=== PATIENT | female | born 1935 | race Hispanic/Latino ===

== ENCOUNTER 2018-06-01 16:16 | Emergency (ER) | payer MEDICARE, SELFPAY ==
[2018-06-01 16:23] VITALS: BP 131/54; PULSE 51; RESP 19; TEMP 36.3; O2SAT 96
[2018-06-01 18:29] LABS: Add Manual Diff / Slide Review NO; Basophils Percent Auto 0.8 % (0-2); Eosinophils Percent Auto 2.5 % (2-4); Hematocrit 32.1 % (36-46); Hemoglobin 10.6 g/dL (12.0-16.0); Lymphocytes Percent Auto 13.3 % (25-40); Mean Corpuscular Hemoglobin 26.9 PG (26-34); Mean Corpuscular Volume 81.5 fL (80-100); Monocytes Percent Auto 10.6 % (3-14); Neutrophils Absolute Auto 5600 /uL (3000-5900); Neutrophils Percent Auto 72.8 % (50-75); Platelet Count 186 X10^3/uL (150-400); Red Blood Cell Count 3.95 X10^6/uL (4.0-5.2); Red Cell Distribution Width 14.6 % (11.6-14.8); White Blood Cell Count 7.7 X10^3/uL (4.5-11.0)
[2018-06-01 18:44] LABS: BUN Creatinine Ratio 34.4 (6-22); Blood Urea Nitrogen 55 mg/dL (7-17); Calcium 8.8 mg/dL (8.4-10.2); Carbon Dioxide 19 mmol/L (22-32); Chloride 97 mmol/L (98-107); Creatine Kinase 108 U/L (30-135); Glucose 191 mg/dL (80-110); HEMOLYSIS < 15 (0-50); Magnesium 2.2 mg/dL (1.6-2.3); Potassium 5.1 mmol/L (3.4-5.1); Sodium 127 mmol/L (137-145)
[2018-06-01 18:59] LABS: CKMB % Relative Index 2.9 % (1.5-5.0); Creatine Kinase MB 3.17 ng/mL (<2.37)
[2018-06-01 19:06] LABS: Troponin I < 0.012 ng/mL (0.01-0.034)
[2018-06-01 19:13] LABS: Procalcitonin < 0.05 ng/mL (<0.5)
[2018-06-01 19:26] VITALS: BP 153/55; PULSE 49; O2SAT 97
--- NOTE | 2018-06-01 19:32 | DI.RAD.S_ITS ---
PROCEDURE: XR CHEST 1V INDICATIONS: shortness of breath TECHNIQUE: One view of the chest was acquired. COMPARISON: None. FINDINGS: Surgical changes and devices: Postsurgical changes are demonstrated in the mediastinum with multiple intact median sternotomy wires. There is a prosthetic aortic valve noted. Lungs and pleura: There is pulmonary edema. Small bilateral pleural effusions are demonstrated. Mediastinum: Mediastinal contours appear normal. Heart size is enlarged. Bones and chest wall: No suspicious bony lesions. Overlying soft tissues appear unremarkable. IMPRESSION: 1. Cardiomegaly with pulmonary edema and small pleural effusions compatible with congestive heart failure. Dictated by: Neto Xiao M.D. on 06/01/2018 at 20:02 Approved by: Neto Xiao M.D. on 06/01/2018 at 20:03
[2018-06-01 20:00] VITALS: BP 141/58; PULSE 49; RESP 18; O2SAT 96
--- NOTE | 2018-06-01 20:34 | PC.NURSE ---
patient is alert and oriented and answering questions appropriately. patients family reports that the patient has had some confusion. Dr. Dev ambriz.
--- NOTE | 2018-06-01 20:53 | ED_ITS ---
HPI - SOB/Dyspnea General Chief Complaint: Shortness of Breath/Dyspnea Stated Complaint: TROUBLE BREATHING RECENTLY Time Seen by Provider: 06/01/18 17:56 Source: patient and family Mode of arrival: ambulatory Limitations: no limitations History of Present Illness 82-year-old female with history of hypertension, diabetes and CHF presents to the emergency department with her family in the chief complaint of lab abnormalities noted by her primary care provider whom then recommended she come to see us. Patient has become increasingly short of breath and has had weight gain and has been working with primary care to address this issue. Additionally over the past few weeks the patient's sodium is take in a rather precipitous drop from the mid to upper 130s to the low 120s. Primary care has alter the patient's diuretic given this increasing creatinine and drop in sodium and the patient is becoming increasingly short of breath. Furthermore family states that the patient has become bit confused and is certainly not at her baseline. The patient pulse ox is 92-94% while resting. Patient is quite short of breath lying flat, with any exertion and at times just with conversation. Patient was noted to have a slow AFib in the office with a heart rate in the 40s and was encouraged not to take her metoprolol MD Complaint: shortness of breath Onset (ago): day(s) Severity: moderate Consistency/Duration: constant Relieving factors: rest Exacerbating factors: lying flat, exertion and movement Known history of: congestive heart failure Associated symptoms: wheezing and orthopnea Treatment prior to arrival: none Related Data Home oxygen amount: none Home Medications Medication Instructions Recorded Confirmed amlodipine 10 mg PO QAM 06/01/18 06/01/18 glimepiride 1 mg PO QAM 06/01/18 06/01/18 insulin glargine [Lantus U-100 19 units SUBCUT QPM 06/01/18 06/01/18 Insulin] lorazepam 0.5 mg PO PRN PRN 06/01/18 06/01/18 losartan 50 mg PO QD-BID 06/01/18 06/01/18 metoprolol tartrate 100 mg PO BID 06/01/18 06/01/18 pravastatin 80 mg PO QAM 06/01/18 06/01/18 torsemide 20 mg PO QAM 06/01/18 06/01/18 venlafaxine 75 mg PO QAM 06/01/18 06/01/18 warfarin 5 mg PO QAM 06/01/18 06/01/18 Allergies Allergy/AdvReac Type Severity Reaction Status Date / Time No Known Drug Allergies Allergy Verified 06/01/18 16:27 Review of Systems Review of Systems All systems reviewed & are unremarkable except as noted in HPI and below Constitutional Denies chills, Denies fever(s), Denies lethargy and Denies weakness Eyes Denies change in vision, Denies eye discharge, Denies irritation and Denies loss of vision ENT Ears, Nose, Mouth, and Throat: Denies change in voice, Denies neck pain and Denies sore throat Cardiovascular Denies chest pain, Denies irregular heart rhythm, Reports leg edema, Denies lightheadedness, Denies palpitations, Reports dyspnea, Reports dyspnea on exertion, Reports orthopnea and Reports slow heart rate Respiratory Denies cough, Reports dyspnea, Reports dyspnea on exertion and Denies wheezing Gastrointestinal Gastrointestinal: Denies abdominal pain, Denies change in bowel habits, Denies diarrhea, Denies nausea and Denies vomiting Genitourinary Denies hematuria, Denies flank pain, Denies urinary incontinence and Denies urinary urgency Musculoskeletal Denies neck pain Integumentary/Breasts Denies pruritus, Denies erythema, Denies rash and Denies wounds Neurologic Denies confusion, Denies loss of vision and Denies weakness Psychiatric Denies anxiety, Denies confusion, Denies depression, Denies homicidal ideation and Denies suicidal ideation Endocrine Denies palpitations Hematologic/Lymphatic Denies easy bruising Allergic/Immunologic Denies wheezing PFSH Social History Smoking Status: Former smoker Exam Narrative Exam Narrative: pleasant 82F in mild distress, clearly SOB Initial Vital Signs Initial Vital Signs: Vital Signs Temperature 97.4 F L 06/01/18 16:23 Pulse Rate 51 L 06/01/18 16:23 Respiratory Rate 19 06/01/18 16:23 Blood Pressure 131/54 H 06/01/18 16:23 Pulse Oximetry 96 06/01/18 16:23 Const General: cooperative and well developed Nutritional Appearance: well nourished Orientation: alert, awake, oriented x3 and not confused Eyes General: appearance normal, both eyes and all related structures Eyelids: eyelids normal Conjunctivae: conjunctivae normal Sclera: sclerae normal Pupils: PERRL EOM: EOM intact bilaterally Neck Neck: normal visual inspection, trachea midline, No lymphadenopathy, No midline deformity and No JVD Lymphatic: No lymphedema Resp Effort & Inspection: normal respiratory effort, able to speak in complete sentences, respiratory distress and no use of accessory muscles Auscultation: rales, no rhonchi and no wheezes Cardio Rate: bradycardic Rhythm: abnormal rhythm GI Inspection: non-distended Palpation: soft, no hepatosplenomegaly, No guarding, No pulsatile mass and No tender Auscultation: normal bowel sounds Back/Spine/Pelvis Back: No CVA tenderness Cervical Spine: cervical ROM normal and No pain with cervical ROM Thoracic/Lumbar Spine: thoracic and lumbar spine normal to inspection Neuro General: alert, oriented x3, gait normal and no focal motor deficits Speech: speech normal Extrem Right lower extremity: edema Details: 2+ Left lower extremity: edema Details: 2+ Psych Appearance: grossly normal Mental Status: mental status grossly normal Attitude: cooperative Thought Content: normal and suicidality Judgment: judgment good Course Orders Ordered: ED Orders 06/01/18 16:50 Consult to Respiratory Therapy Evaluate & Treat EKG-12 Lead Stat 06/01/18 18:15 B Type Natriuretic Peptide Stat Basic Metabolic Panel Stat Complete Blood Count AUTO DIFF Stat Magnesium Stat Procalcitonin Stat Troponin & CK Cardiac Panel Stat 06/01/18 19:32 XR chest 1V Stat Discontinued Medications Albuterol/Ipratropium (Duoneb) 3 ml INH NOW ONE Stop: 06/01/18 16:51 Last Admin: 06/01/18 19:17 Dose: Not Given Methylprednisolone (Solu-Medrol 125 Mg Vial) 125 mg IV NOW ONE Stop: 06/01/18 16:51 Last Admin: 06/01/18 19:17 Dose: Not Given Vital Signs - 8 hr 06/01/18 16:23 06/01/18 19:26 06/01/18 20:00 Temperature 97.4 F L Pulse Rate 51 L 49 L 49 L Respiratory Rate 19 18 Blood Pressure 131/54 H Blood Pressure [Left Arm] 153/55 H 141/58 H Pulse Oximetry 96 97 96 06/01/18 21:13 Temperature Pulse Rate 52 L Respiratory Rate Blood Pressure Blood Pressure [Left Arm] 156/60 H Pulse Oximetry 100 MDM - SOB/Dyspnea Differential Diagnosis Likely congestive heart failure and pulmonary embolism Medical Records Attestation: I reviewed the patient's medical records. Lab Data Attestation: I reviewed the patient's lab results. Result diagrams: 06/01/18 18:15 06/01/18 18:15 Lab Results 06/01/18 06/01/18 06/01/18 Range/Units 18:15 18:15 18:15 WBC 7.7 (4.5-11.0) X10^3/uL RBC 3.95 L (4.0-5.2) X10^6/uL Hgb 10.6 L (12.0-16.0) g/dL Hct 32.1 L (36-46) % MCV 81.5 (80-100) fL MCH 26.9 (26-34) PG MCHC 33.0 (30-36) % RDW 14.6 (11.6-14.8) % Plt Count 186 (150-400) X10^3/uL Neut % (Auto) 72.8 (50-75) % Lymph % (Auto) 13.3 L (25-40) % [place] % (Auto) 10.6 (3-14) % Eos % (Auto) 2.5 (2-4) % Baso % (Auto) 0.8 (0-2) % Neut # (Auto) 5600 (4302-7664) /uL Sodium 127 L (137-145) mmol/L Potassium 5.1 (3.4-5.1) mmol/L Chloride 97 L (98-107) mmol/L Carbon Dioxide 19 L (22-32) mmol/L BUN 55 H (7-17) mg/dL Creatinine 1.60 H (0.52-1.04) mg/dL Estimated GFR 31.0 L (>60) mL/min BUN/Creatinine Ratio 34.4 H (6-22) Glucose 191 H (80-110) mg/dL Calcium 8.8 (8.4-10.2) mg/dL Magnesium 2.2 (1.6-2.3) mg/dL Total Creatine Kinase 108 (30-135) U/L CK-MB (CK-2) 3.17 H (<2.37) ng/mL CK-MB (CK-2) Rel Index 2.9 (1.5-5.0) % Troponin I < 0.012 (0.01-0.034) ng/mL B-Natriuretic Peptide 350.0 H (<100) Procalcitonin < 0.05 (<0.5) ng/mL Imaging Data Chest x-ray: Radiologist's impression: PROCEDURE: XR CHEST 1V INDICATIONS: shortness of breath TECHNIQUE: One view of the chest was acquired. COMPARISON: None. FINDINGS: Surgical changes and devices: Postsurgical changes are demonstrated in the mediastinum with multiple intact median sternotomy wires. There is a prosthetic aortic valve noted. Lungs and pleura: There is pulmonary edema. Small bilateral pleural effusions are demonstrated. Mediastinum: Mediastinal contours appear normal. Heart size is enlarged. Bones and chest wall: No suspicious bony lesions. Overlying soft tissues appear unremarkable. IMPRESSION: 1. Cardiomegaly with pulmonary edema and small pleural effusions compatible with congestive heart failure. Dictated by: Neto Xiao M.D. on 06/01/2018 at 20:02 Approved by: Neto Xiao M.D. on 06/01/2018 at 20:03 [facility] Narrative Medical decision making narrative: I have discussed this case with the patient' s primary care provider whom has tried for the past few weeks to alter medications and await to stabilize this patient clinically and both labs and the patient or worsening. The primary care provider does not feel comfortable continuing to manage this as an outpatient. Patient has increasing heart failure and worsening renal failure and hyponatremia. She clinically is in failure and though not hypoxic is obviously working harder to breathe than her baseline. She will require hospitalization for further evaluation and stabilization of her condition. We think [facility] for assisting in the care of this pleasant patient Discharge Plan Departure Patient Disposition: [facility] Clinical Impression: Congestive heart failure, Acute renal failure, Acute hyponatremia Prescriptions: No Action metoprolol tartrate 100 mg tablet 100 mg PO BID RF: 0 amlodipine 10 mg tablet 10 mg PO QAM RF: 0 lorazepam 0.5 mg tablet 0.5 mg PO PRN PRN (Reason: Anxiety) RF: 0 losartan 50 mg tablet 50 mg PO QD-BID RF: 0 torsemide 20 mg tablet 20 mg PO QAM RF: 0 venlafaxine 75 mg capsule,extended release 24hr 75 mg PO QAM RF: 0 warfarin 5 mg tablet 5 mg PO QAM RF: 0 insulin glargine [Lantus U-100 Insulin] 100 unit/mL solution 19 units subcut QPM RF: 0 glimepiride 1 mg Tablet 1 mg PO QAM RF: 0 pravastatin 80 mg tablet 80 mg PO QAM RF: 0
--- NOTE | 2018-06-01 21:05 | PC.NURSE ---
Ambulation Trial requested per Doctor. Patient walked with a steady gait around the ER. Oxygen saturation was 93 with HR of 58. Returning to room oxygen was 97-98. Reported back to Doctor Dev.
[2018-06-01 21:13] VITALS: BP 156/60; PULSE 52; O2SAT 100
[2018-06-01 21:50] VITALS: PULSE 60; O2SAT 93
[2018-06-01 22:56] VITALS: BP 162/66; PULSE 50; RESP 16; TEMP 36.6; O2SAT 100
== END 2018-06-01 23:06 | disposition short-term general hospital (02) ==
PROVIDERS: Emergency Medicine; Emergency Provider Emergency Medicine; Family Provider Internal Medicine Interventional Cardiology; PCP Internal Medicine Interventional Cardiology
DX: I50.9 Heart failure, unspecified (principal); N17.9 Acute kidney failure, unspecified; E87.1 Hypo-osmolality and hyponatremia
CPT/HCPCS: 71045; 80048; 82550; 82553; 83735; 83880; 84145; 84484; 85025; 93005; 93010; 99283; 99285

== ENCOUNTER → 2020-07-09 08:54 | Outpatient (CLI) | payer MEDICARE, SELFPAY | PROVIDERS: Family Provider Internal Medicine Interventional Cardiology; PCP Internal Medicine Interventional Cardiology; Referring Provider Podiatrist; Visit Provider Family Medicine | DX: I87.2 Venous insufficiency (chronic) (peripheral) (principal); L97.221 Non-pressure chronic ulcer of left calf limited to breakdown of skin; I73.9 Peripheral vascular disease, unspecified; E11.622 Type 2 diabetes mellitus with other skin ulcer | CPT/HCPCS: 93922; 97597; 99203; 99213 ==

== ENCOUNTER → 2020-07-16 14:11 | Outpatient (CLI) | payer MEDICARE, SELFPAY | PROVIDERS: Family Provider Internal Medicine Interventional Cardiology; PCP Internal Medicine Interventional Cardiology; Referring Provider Internal Medicine Interventional Cardiology; Visit Provider Family Medicine | DX: I87.2 Venous insufficiency (chronic) (peripheral) (principal); R60.0 Localized edema; I73.9 Peripheral vascular disease, unspecified | CPT/HCPCS: 99212; 99213 ==